=== PATIENT | female | born 1980 | race African-American/Black ===

== ENCOUNTER 2020-09-07 08:00 | Outpatient (CLI) | payer SELFPAY ==
--- NOTE | 2020-09-07 08:03 | ECG_ITS ---
Measurements Intervals [place] Rate: 85 P: 32 UT: 166 QRS: 34 QRSD: 89 T: 35 QT: 364 QTc: 433 Interpretive Statements SINUS RHYTHM NORMAL ECG Electronically Signed On 09-07-2020 9:33:52 CDT by Alex Valle D.O.
[2020-09-07 08:27] LABS: Hematocrit 36.4 % (37.0-47.0); Hemoglobin 11.2 g/dL (12.0-15.0)
[2020-09-07 08:48] LABS: Anion Gap 8 mmol/L (8-16); Blood Urea Nitrogen 11 mg/dL (7-17); Carbon Dioxide 26 mmol/L (22-30); Chloride 105 mmol/L (98-107); Estimated Glomerular Filt Rate > 60; Glucose 172 mg/dL (65-105); Potassium 4.3 mmol/L (3.4-5.0); Sodium 139 mmol/L (137-145)
== END 2020-09-07 08:01 | disposition home or self-care (01) ==
LOC: ANHSURGERY 08:03
PROVIDERS: Anesthesiology; PCP Internal Medicine; Visit Provider Surgery Plastic and Reconstructive Surgery
DX: Z41.1 Encounter for cosmetic surgery (principal); Z79.899 Other long term (current) drug therapy
CPT/HCPCS: 36415; 80048; 85014; 85018; 93005

== ENCOUNTER 2020-09-11 00:47 | Outpatient (CLI) | payer SELFPAY ==
[2020-09-11 19:58] LABS: SARS-CoV-2 RNA PCR Negative
== END 2020-09-11 00:48 | disposition home or self-care (01) ==
LOC: ANHCOVIDDT 00:48
PROVIDERS: PCP Internal Medicine; Visit Provider Surgery Plastic and Reconstructive Surgery
DX: Z01.812 Encounter for preprocedural laboratory examination (principal); Z20.828 Contact with and (suspected) exposure to other viral communicable diseases
CPT/HCPCS: 87635; C9803; U0003

== ENCOUNTER 2020-09-13 02:13 | Day surgery (SDC) | payer OTHER, SELFPAY ==
[2020-08-30 11:46] VITALS: BMI 31.0
--- NOTE | 2020-09-12 14:11 | WPDANESEPPF ---
Anes - Initial Pre Proc Eval Procedure: Operation Date: 09/13/20 12:00 Proposed Procedures p Abdominoplasty, - Christiano Temple MD s Liposuction of Abdomen - Christiano Temple MD Date/Time: 09/12/20 14:11 Surgeon: Christiano Temple MD Pre Op Diagnosis: skin laxity Patient Data Age: 39 Gender: F Height: 1.73 m Weight: 92.53 kg Allergies Allergy/AdvReac Type Severity Reaction Status Date / Time No Known Allergies Allergy Verified 09/13/20 09:58 Home Medications Medication Instructions Recorded Confirmed Type aripiprazole 2 mg tablet 2 mg PO DAILY 08/09/20 08/30/20 History escitalopram oxalate 20 mg tablet 20 mg PO DAILY 08/09/20 08/30/20 History levothyroxine 137 mcg capsule 137 mcg PO DAILY 08/09/20 08/30/20 History metformin 1,000 mg tablet 1,000 mg PO DAILY 08/09/20 08/30/20 History ferrous sulfate [iron] 325 mg PO EVERY OTHER DAY 08/30/20 08/30/20 History carisoprodol 350 mg tablet 350 mg PO TID PRN #21 tablet 09/08/20 09/13/20 Rx oxycodone-acetaminophen 5 mg-325 1 tablet PO Q6H PRN #15 tablet 09/08/20 09/13/20 Rx mg tablet ECG: Date of Service: 09/07/20 Procedure(s): CA 12 lead EKG Accession Number(s): [id number] cc: ~ Measurements Intervals [place] Rate: 85 P: 32 AL: 166 QRS: 34 QRSD: 89 T: 35 QT: 364 QTc: 433 Interpretive Statements SINUS RHYTHM NORMAL ECG Electronically Signed On 09-07-2020 9:33:52 CDT by Alex Valle D.O. Dictated By: Alex Valle DO 09/07/20 0837 Patient hx anesthesia problems: none Family hx anesthesia problems: none PMFSH Past Medical History Medical History (Updated 09/12/20 @ 14:13 by Rajeev Ramirez MD) Anxiety Depression Glucose intolerance Obesity PONV (postoperative nausea and vomiting) Thyroid cancer Surgical History Surgical History History of delivery History of thyroidectomy Family History Family History Mother Breast cancer Diabetes mellitus Father Diabetes mellitus Hypertension Social History Social History Smoking status: Never smoker Spiritual care concerns: No Anes - Eval Final PreProcedure Day of Procedure 09/12/20 14:11 Patient weight: obese Heart: regular rate and rhythm Lungs: clear to auscultation and normal air movement Airway: Mallampati scale class II Neurological: alert and oriented Last oral intake: >/= 8 hours ASA classification: III Emergent: no Anesthetic plan: proceed Anesthesia type and monitoring: general ETT Informed Consent: The patient's anesthetic plan and its attendant risks and benefits were discussed with the patient/family/POA. Questions were solicited and answers provided to the satisfaction of the patient/family/POA.
[2020-09-13] VITALS (11 sets, daily range): BP systolic 97–137; BP diastolic 55–78; PULSE 86–106; RESP 14–21; TEMP 36.2–37.2; O2SAT 95–100
[2020-09-13 10:09] LABS: Urine Cotinine NEGATIVE
[2020-09-13 10:33] LABS: Glucose Point of Care 118 (65-105)
[2020-09-13] MEDS: LACTATED RINGERS 1,000 ML 30 ML IV CONT ×2 (10:34→17:03)
--- NOTE | 2020-09-13 11:50 | WPDHPUPDATE1 ---
History and Physical Update Update Date/Time: 09/13/20 11:50 History and Physical has been reviewed, including an updated exam of the patient. There are NO changes in the patient's condition. Risks, benefits, and alternatives have been discussed and questions answered. Patient agrees to proceed with procedure.
--- NOTE | 2020-09-13 11:57 | PM.PROC ---
Procedure Note - Detailed Date of procedure: 09/13/20 Pre-op diagnosis: skin laxity Post-op diagnosis: same Procedure performed: Progressive tension abdominoplasty with suction lipectomy Description of procedure: She is here today for abdominoplasty with suction lipectomy. Previously and again today the risks, benefits, alternatives were discussed in extensive detail. I wanted her to be very realistic about the risks involved as well as expectations. We discussed aftercare and what to monitor for. I was very upfront about the risks of wound breakdown leading to loss of skin, open wounds, and need for additional procedures with permanent abdominal deformity. We discussed risk of dog-ears and need for additional procedures. Further discussed risks of liposuction in conjuntion with abdominoplasty as well as limitations of the procedure. We discussed DVT/PE risks and management. Made sure answered all of her questions to her satisfaction today and consent was obtained. She was marked in the preoperative holding area with their verification. The patient was taken to the operating room placed supine on the operating table. Anesthesia was provided by anesthesiology. A mcdaniels catheter was started. She was prepped and draped in a standard sterile fashion. A surgical time-out was taken. Suction lipectomy was completed using S.A.F.E. technique to contour and rolling pinch. This was through multiple angles / planes. Patient was turned to lateral decubitus position during the procedure to verify contour. I placed the patient in a flexed position to verify the upper and lower markings would reach. I then placed her supine. A thorough abdominal examination was completed. Stab incisions were made and used tumescent solution. A 10 blade was used to make the upper incision. I continued dissection down to the level of fascia. Elevated just what was necessary for repair of the diastasis and discontinuous undermining otherwise. I then again flexed the bed to verify the upper skin flap would reach the lower markings without tension. Once verified I placed her supine once again and a 10 blade used to make the lower incision. I elevated up to level the umbilicus and left the umbilicus intact on a well-vascularized stalk. The intervening tissue was removed. A 2 mm blunt cannula and Exparel which was mixed 20 cc in 100 cc for a total volume of 120 cc I injected deep to the fascia bilaterally as well as along the incision lines. I plicated the diastasis recti using 0 PDO stratafix barbed suture. This was in 2 separate layers using 2 separate sutures as well. I repaired around the umbilicus leaving plenty of room for well-vascularized stalk of the umbilicus with 2-0 PDS. The patient was flexed and starting from superior to inferior began plication using 2-0 Vicryl to obliterate all space in a standard progressive tension fashion. At the umbilicus I marked out the location of the skin and inset this with 3-0 Monocryl and 4-0 nylon. I continued the remainder of the plication using 2-0 Vicryl until I reached my lower planned scar line. I trimmed any excess skin of the upper flap making sure this was a tension-free closure. I then approximated using a 3 point suture with 2-0 Vicryl followed by 3-0 stratafix ,running subcuticular 4-0 Monocryl, and tissue glue. Fluffs and an abdominal binder were placed. The patient was transferred to the bed in a flexed position. [place] and taken to the PACU without difficulty. All instrument and sponge counts were correct at the end of the case. Anesthesia: GETA Surgeon: Christiano Temple MD Estimated blood loss (mL): 40 Drains: No Packing: No Pathology: none sent Complications: No immediate complications Condition: stable Disposition: PACU Findings: Tissue removed: 3238 grams Lipoaspirate: 1800cc
[2020-09-13] MEDS: ceFAZolin 2 GM/D5W 50 ML 2 GM/50 ML BAG IVPB (12:03)
--- NOTE | 2020-09-13 13:50 | SUR.OPER ---
At 1328 patient positioned in Left lateral position. Arms, shoulders, neck, and head secured in place and padded with foam for support. BUCKET OPERATOR verified position. Pillow between knees and ankles for support. gel roll placed in front of patient. RAPHAEL SHERMAN, and assisted with positioning at field. At 1345 patient positioned in Right lateral position. Arms, shoulders, neck and head secured in place and padded with foam for support. BUCKET OPERATOR verified position. Pillow between knees and ankle for support. RAPHAEL SHERMAN, and assisted with positioning at field. verified positioning. personnel at bedside for duration of case
[2020-09-13] MEDS: ceFAZolin SODIUM 1 GM VIAL 2 GM IV PUSH (16:02)
[2020-09-13 17:14] LABS: Glucose Point of Care 172 (65-105)
--- NOTE | 2020-09-13 18:00 | PC.NURSE ---
Pt admitted to room 289 per bed. Alert and oriented x3.
[2020-09-13] MEDS: carisoprodoL (*CRX) 350 MG TABLET PO (18:37)
[2020-09-13] MEDS: LACTATED RINGERS 1,000 ML 125 ML IV CONT (18:38)
[2020-09-13] MEDS: oxyCODONE/ACETAMINOPHEN (*CRX) 5-325 MG TABLET PO (21:40)
[2020-09-13] MEDS: DOCUSATE SODIUM 100 MG CAPSULE PO (21:40)
[2020-09-13] MEDS: MORPHINE SULFATE (*CRX) 2 MG/ML INJ IV PUSH (23:40)
[2020-09-13] MEDS: ENOXAPARIN 40 MG/0.4 ML SYRINGE SUB-Q (23:40)
[2020-09-14] MEDS: carisoprodoL (*CRX) 350 MG TABLET PO ×2 (02:00→08:04)
[2020-09-14] MEDS: oxyCODONE/ACETAMINOPHEN (*CRX) 5-325 MG TABLET PO ×2 (03:32→09:46)
[2020-09-14 05:00] VITALS: BP 107/54; PULSE 103; RESP 16; TEMP 37.6; O2SAT 97
--- NOTE | 2020-09-14 06:41 | WPDPN ---
Progress Note: A&P Assessment and Plan (1) Skin laxity: Code(s): L57.4 - Cutis laxa senilis Status: Acute Assessment and Plan: She is doing well. Will plan for discharge home. Follow-up. Today we had a lengthy discussion about the care. What monitor for. All questions answered to her satisfaction. Review of Systems Review of Systems: All systems reviewed & are unremarkable except as noted in HPI and below Exam Narrative: Exam Narrative: Abdomen and flanks are healing well. There is no signs infection. No hematoma. No seroma. No calf tenderness. Negative Homans. Objective Data Vital Signs Vital Signs: Vital Signs - 24 hr 09/13/20 09:55 09/13/20 17:03 09/13/20 17:18 Temperature 36.3 C L 36.2 C L Pulse Rate 86 106 H 97 Respiratory Rate 14 16 20 Blood Pressure 126/72 137/78 133/77 Pulse Oximetry 100 100 98 09/13/20 17:33 09/13/20 17:45 09/13/20 18:00 Temperature 36.9 C Pulse Rate 93 88 89 Respiratory Rate 21 H 17 16 Blood Pressure 122/78 118/71 123/70 Pulse Oximetry 95 97 96 09/13/20 18:15 09/13/20 18:45 09/13/20 19:00 Temperature 36.7 C Pulse Rate 93 87 96 Respiratory Rate 16 Blood Pressure 116/75 119/66 97/58 L Pulse Oximetry 97 98 100 09/13/20 20:00 09/13/20 23:45 Temperature 37.2 C Pulse Rate 93 94 Respiratory Rate 16 Blood Pressure 112/67 107/55 L Pulse Oximetry 97 96 Intake/Output Intake/Output: Intake & Output 09/11/20 09/12/20 09/13/20 09/14/20 23:59 23:59 23:59 23:59 Intake Total 830 Output Total 1050 500 Balance -220 -500 Meds/Results Medications: Active Medications Generic Name Dose Route Start Last Admin Trade Name Freq PRN Reason Stop Dose Admin Aripiprazole 2 mg 09/14/20 09:00 Aripiprazole 2 Mg Tablet PO DAILY FERMIN Carisoprodol 350 mg 09/13/20 18:00 09/14/20 02:00 Carisoprodol (*Crx) 350 Mg Tablet PO 350 mg Q6HR FERMIN Administration Docusate Sodium 100 mg 09/13/20 21:00 09/13/20 21:40 Docusate Sodium 100 Mg Capsule PO 100 mg Q12HR FERMIN Administration Enoxaparin Sodium 40 mg 09/13/20 23:00 09/13/20 23:40 Enoxaparin 40 Mg/0.4 Ml Syringe SUB-Q 40 mg Q24H FERMIN Administration Escitalopram Oxalate 20 mg 09/14/20 09:00 Escitalopram Oxalate 10 Mg Tablet PO DAILY [facility] Lactated Ringer's 1,000 mls @ 125 mls/hr 09/13/20 16:30 09/13/20 18:38 Lr - Lactated Ringers Iv IV CONT 125 mls/hr .Q8H [facility] Administration Levothyroxine Sodium 112 mcg/ 137 mcg 09/14/20 06:30 Levothyroxine Sodium 25 mcg PO DAILY@0630 [facility] Metformin HCl 1,000 mg 09/14/20 08:00 Metformin Hcl 500 Mg Tablet PO DAILY@0800 [facility] Morphine Sulfate 2 mg 09/13/20 16:27 09/13/20 23:40 Morphine Sulfate (*Crx) 2 Mg/Ml Inj IV PUSH 2 mg Q2H PRN Administration Pain Ondansetron HCl 4 mg 09/13/20 16:27 Ondansetron Inj 4 Mg/2 Ml Vial IV PUSH Q6H PRN Nausea Oxycodone/Acetaminophen 1 - 2 tablet 09/13/20 16:27 09/14/20 03:32 Oxycodone/Acetaminophen (*Crx) 5-325 Mg Tablet PO 2 tablet Q6H PRN Administration Pain Labs Labs: Laboratory Results - last 24 hr 09/13/20 09/13/20 09/13/20 09:53 10:30 17:12 POC Capillary Glucose 118 H 172 H Cotinine Negative Subjective Date/time seen: 09/14/20 06:41 She states she is doing very well today. No fevers or chills. No nausea or vomiting. No shortness of breath. No chest pain. No calf tenderness. She has been ambulating. Pain is controlled.
--- NOTE | 2020-09-14 06:43 | PM.DS ---
DS: Admitting Diagnosis Admitting Diagnosis Admitting Diagnosis: skin laxity DS: Discharge Diagnosis Discharge Diagnosis (1) Skin laxity: Code(s): L57.4 - Cutis laxa senilis Status: Acute Assessment and Plan: She has done very well after abdominoplasty and abdominal/flank suction lipectomy. Will discharge home. Today we spent extensive time discussing the care afterwards. What monitor for. We discussed what is a medical emergency and went to proceed to the emergency room/ dial 911. Explained for all her questions we are available at any time to please reach out. She will call with any questions or concerns. DS: Summary Time Spent with Patient Time attestation: Total time spent providing and/or coordinating discharge services:15 Exam Narrative: Exam Narrative: Abdomen and flanks are healing well. There is no signs infection. No hematoma. No seroma. No calf tenderness. Negative Homans. Const: General: comfortable, no acute distress, alert and awake; No acute distress Orientation/consciousness: oriented to person HENMT: Head: normal to inspection Ears: external ears normal General nose exam: Normal external nose present Face and sinus: normal facial exam Eyes: General: appearance normal, both eyes and all related structures Periorbital: periorbital findings normal Eyelids: eyelids normal Conjunctivae: conjunctivae normal Neck: Neck: normal visual inspection Chest: Chest palpation & inspection: normal inspection of the chest Resp: Effort & Inspection: normal respiratory effort and able to speak in complete sentences GI: Inspection: normal to inspection Neuro: General: oriented to person Psych: Appearance: grossly normal Mental Status: mental status grossly normal DS: Data Data Completed and Pending Labs on day of discharge: Labs from last 24 hours 09/13/20 09/13/20 09/13/20 17:12 10:30 09:53 POC Capillary Glucose 172 H 118 H Cotinine Negative Discharge Plan Discharge Patient Disposition: Home, Self-Care Discharge Instructions: POST OPERATIVE DISCHARGE INSTRUCTIONS FOR Abdominoplasty / Suction lipectomy CHRISTIANO TEMPLE M.D. [facility] [address] [place] [address] [address] for 24 hours after anesthesia and while you are taking pain medication. Take all prescribed medication as directed Diet as tolerated. No lifting or activity that raises blood pressure for 48 hours. Regular walking / ambulation. No showering until directed to. Once you shower do not take pain medication before showering as the combination of medication and heat may cause you to feel dizzy or pass out. No pools or tubs for 2 weeks. Call with any questions or concerns. Slowly stand up straight over the week. No straining or lifting more than 20 pounds over the next 6 weeks. Dressing Care: May shower. If you have any questions or concerns, please call the office . If it is after hours you will be directed to the operations research engineer exchange. Shortness of breath, chest pain, or other medical emergency dial 911 / proceed to the Emergency Room. Stand Alone Forms: General Discharge Instructions Follow-up/Referrals: Christiano Temple MD [Physician] - 1 Week Discharge Medications: Continued carisoprodol [Soma] 350 mg tablet 350 mg PO TID PRN (Reason: muscle pain) Qty: 21 RF: 0 oxycodone-acetaminophen [Percocet] 5-325 mg tablet 1 tablet PO Q6H PRN (Reason: pain) Qty: 15 RF: 0 escitalopram oxalate 20 mg tablet 20 mg PO DAILY RF: 0 aripiprazole [Abilify] 2 mg tablet 2 mg PO DAILY RF: 0 metformin 1,000 mg tablet 1,000 mg PO DAILY RF: 0 levothyroxine 137 mcg capsule 137 mcg PO DAILY RF: 0 ferrous sulfate [iron] 325 mg (65 mg iron) Tablet 325 mg PO EVERY OTHER DAY RF: 0
[2020-09-14] MEDS: LEVOTHYROXINE SODIUM 112 MCG, LEVOTHYROXINE SODIUM 25 MCG 137 MCG PO (06:57)
[2020-09-14 07:00] VITALS: BP 100/52; PULSE 105; RESP 18; TEMP 37.1; O2SAT 97
--- NOTE | 2020-09-14 07:32 | WPDANESPN ---
Anes - Prog Note Post-Op Date/Time: 09/14/20 07:32 Cardiovascular status: normal Respiratory status: normal Airway patency: baseline Mental status: baseline Post-Op hydration status: normal Vital Signs: Last Vital Signs Temp 37.6 C H 09/14/20 05:00 Pulse 103 H 09/14/20 05:00 Resp 16 09/14/20 05:00 BP 107/54 L 09/14/20 05:00 Pulse Ox 97 09/14/20 05:00 Pain Score (VAS): 2/10 I/O: Intake & Output 09/13/20 09/13/20 09/14/20 15:59 23:59 07:59 Intake Total 150 680 600 Output Total 1050 1200 Balance 150 -370 -600 09/13/20 09/13/20 09/13/20 09:53 10:30 17:12 POC Capillary Glucose 118 H 172 H Cotinine Negative Post-procedural complaints: none Patient Feedback: Patient satisfied with anesthetic care.
[2020-09-14] MEDS: ARIPiprazole 2 MG TABLET PO (08:04)
[2020-09-14] MEDS: ESCITALOPRAM OXALATE 10 MG TABLET 20 MG PO (08:04)
[2020-09-14] MEDS: DOCUSATE SODIUM 100 MG CAPSULE PO (08:04)
[2020-09-14] MEDS: metFORMIN HCL 500 MG TABLET 1000 MG PO (08:05)
== END 2020-09-14 11:00 | disposition home or self-care (01) ==
LOC: ANHSURGERY 12:15 → ANHOB2 17:55
PROVIDERS: PCP Internal Medicine; Visit Provider Surgery Plastic and Reconstructive Surgery
PROC: (CPT 15830; principal; 2020-09-13 12:00)
PROC: (CPT 15877; 2020-09-13 12:00)
DX: Z41.1 Encounter for cosmetic surgery (principal); L57.4 Cutis laxa senilis; E74.39 Other disorders of intestinal carbohydrate absorption; F41.8 Other specified anxiety disorders; E66.9 Obesity, unspecified; Z68.31 Body mass index [BMI] 31.0-31.9, adult; Z79.899 Other long term (current) drug therapy
CPT/HCPCS: 15830; 15847; 15877; 80307; 99199; A9270; C9290; J0131; J0171; J0330; J0690; J1100; J1650; J2250; J2270; J2405; J2704; J2710; J3010; J7120